=== PATIENT | female | born 1965 | race African-American/Black ===

== ENCOUNTER 2024-10-31 18:55 | Emergency (ER) | payer MEDICAID ==
[~2024-10-31] VITALS: Ht 152.4 cm; Wt 50.0 kg
[~2024-10-31 18:55] MED LIST: AMOX1TAB16 MT; DOCU-422 PO; LOSA50TA41 PO
[2024-10-31 19:01] VITALS: TEMP 36.9; O2SAT 99
[2024-10-31 22:37] VITALS: BP 150/91; PULSE 75; RESP 16; O2SAT 100
== END 2024-10-31 22:38 ==
LOC: ER 18:55
DX: S91.101A Unspecified open wound of right great toe without damage to nail, initial encounter (principal); I10 Essential (primary) hypertension; E11.9 Type 2 diabetes mellitus without complications; E03.9 Hypothyroidism, unspecified; Z79.899 Other long term (current) drug therapy; W45.8XXA Other foreign body or object entering through skin, initial encounter; Y93.89 Activity, other specified; Y92.89 Other specified places as the place of occurrence of the external cause; Y99.8 Other external cause status
CPT/HCPCS: 99283

== ENCOUNTER 2025-08-17 15:44 | Inpatient (IN) | payer MEDICARE, MEDICAID ==
[~2025-08-17] VITALS: Ht 160 cm; Wt 50.8 kg
[~2025-08-17 15:44] MED LIST changes: -AMOX1TAB16 MT; +ASPI-1406 PO; +CLOP-31 PO; +FOLI0.8T53 PO; +INSLIS SUBCUT; +LANTUSUD SUBCUT; +LEVO25TA7 PO; +LIP40 PO; -LOSA50TA41 PO
[2025-08-17 15:47] VITALS: O2SAT 100
[2025-08-17 17:08] LABS: BASOPHILS % 0.4 % (0.0-2.0); EOSINOPHILS % 0.9 % (0.0-5.0); HEMATOCRIT. 34.0 % (36.0-48.0); HEMOGLOBIN. 11.6 g/dL (12.0-16.0); LYMPHOCYTES % 21.6 % (20.0-50.0); MEAN PLATELET VOLUME 7.4 fl (7.4-10.4); MONOCYTES % 5.5 % (2.0-8.0); NEUTROPHILS % 71.6 % (40.0-76.0); PLATELET 292 x1000/uL (130-400); RED BLOOD CELL COUNT 3.61 mill/uL (4.2-5.4); RED CELL DISTRIBUTION WIDTH 17.7 % (11.6-14.6)
[2025-08-17 17:24] LABS: INR 1.1
[2025-08-17 17:30] LABS: PROTEIN TOTAL 7.9 g/dL (6.0-8.3); TROPONIN I HIGH SENSITIVITY 27 ng/L (3.0-34); UREA NITROGEN BLOOD 12 mg/dL (9-23)
[2025-08-17 17:31] LABS: ASPARTATE AMINOTRANSFERASE 34 IU/L (<34); BILIRUBIN DIRECT 0.1 mg/dL (<=3.0)
[2025-08-17 17:32] LABS: BILIRUBIN TOTAL 0.3 mg/dL (0.1-1.0); CREATININE 2.0 mg/dL (0.6-1.0)
[2025-08-17] MEDS: ACETAMINOPHEN 325MG TABLET PO ONE (19:05)
[2025-08-17 20:43] LABS: TROPONIN I HIGH SENSITIVITY 36 ng/L (3.0-34)
[2025-08-17] MEDS ORDERED: IPRATROPIUM/ALBUTEROL 0.5-3(2.5)MG/3ML NEB HHN PRN (22:15)
[2025-08-17] MEDS ORDERED: POTASSIUM CHLORIDE 20MEQ TABLET SR PO PRN (22:15)
[2025-08-17] MEDS ORDERED: ONDANSETRON HCL 4MG/2ML INJ IV PRN (22:15)
[2025-08-17] MEDS ORDERED: DEXTROSE 50% WATER 50ML SYRINGE IV PRN ×2 (22:15)
[2025-08-17] MEDS ORDERED: MAGNESIUM/ALUMINUM HYDROXIDE/SIMETHICONE 30ML UDC PO PRN (22:15)
[2025-08-17] MEDS ORDERED: HYDROCODONE/ACETAMINOPHEN 5/325MG TABLET PO PRN (22:20)
[2025-08-18] VITALS (8 sets, daily range): BP systolic 128–178; BP diastolic 75–105; PULSE 60–79; RESP 16–20; TEMP 36.2–37.4; O2SAT 98–100
[2025-08-18] MEDS: ACETAMINOPHEN 325MG TABLET PO PRN (00:33)
[2025-08-18] MEDS: CLONIDINE 0.1MG TABLET PO PRN (00:33)
[2025-08-18 06:37] LABS: UREA NITROGEN BLOOD 20 mg/dL (9-23)
[2025-08-18 06:39] LABS: PROTEIN TOTAL 6.7 g/dL (6.0-8.3)
[2025-08-18 06:40] LABS: ASPARTATE AMINOTRANSFERASE 30 IU/L (<34); BILIRUBIN DIRECT < 0.1 mg/dL (<=3.0); BILIRUBIN TOTAL 0.2 mg/dL (0.1-1.0); PHOSPHORUS 4.2 mg/dL (2.5-4.9)
[2025-08-18 06:44] LABS: CREATININE 3.1 mg/dL (0.6-1.0)
[2025-08-18 06:53] LABS: BASOPHILS % 0.4 % (0.0-2.0); EOSINOPHILS % 1.3 % (0.0-5.0); HEMATOCRIT. 31.0 % (36.0-48.0); HEMOGLOBIN. 10.5 g/dL (12.0-16.0); LYMPHOCYTES % 38.6 % (20.0-50.0); MEAN PLATELET VOLUME 7.6 fl (7.4-10.4); MONOCYTES % 8.6 % (2.0-8.0); NEUTROPHILS % 51.1 % (40.0-76.0); PLATELET 234 x1000/uL (130-400); RED BLOOD CELL COUNT 3.25 mill/uL (4.2-5.4); RED CELL DISTRIBUTION WIDTH 18.1 % (11.6-14.6)
[2025-08-18] MEDS: BLOOD SUGAR DIAGNOSTIC STRIP TEST SCH (07:40)
[2025-08-18] MEDS: INSULIN LISPRO 100 UNITS/ML SUBCUT SCH (08:10)
[2025-08-18] MEDS: ENOXAPARIN 30MG/0.3ML SYR SUBCUT SCH (09:09)
[2025-08-18 10:19] LABS: TROPONIN I HIGH SENSITIVITY 32 ng/L (3.0-34)
[2025-08-18] MEDS: DOCUSATE SODIUM 100MG CAPSULE PO PRN (18:50)
[2025-08-19] VITALS (12 sets, daily range): BP systolic 92–175; BP diastolic 64–106; PULSE 64–102; RESP 16–20; TEMP 36.2–37.2; O2SAT 95–99
[2025-08-19 12:14] LABS: BASOPHILS % 0.2 % (0.0-2.0); EOSINOPHILS % 1.0 % (0.0-5.0); HEMATOCRIT. 36.9 % (36.0-48.0); HEMOGLOBIN. 12.4 g/dL (12.0-16.0); LYMPHOCYTES % 25.6 % (20.0-50.0); MEAN PLATELET VOLUME 7.5 fl (7.4-10.4); MONOCYTES % 5.4 % (2.0-8.0); NEUTROPHILS % 67.8 % (40.0-76.0); PLATELET 284 x1000/uL (130-400); RED BLOOD CELL COUNT 3.87 mill/uL (4.2-5.4); RED CELL DISTRIBUTION WIDTH 18.9 % (11.6-14.6)
[2025-08-19 12:30] LABS: CREATININE 2.5 mg/dL (0.6-1.0); UREA NITROGEN BLOOD 18 mg/dL (9-23)
[2025-08-19 12:31] LABS: PROTEIN TOTAL 8.6 g/dL (6.0-8.3)
[2025-08-19 12:32] LABS: ASPARTATE AMINOTRANSFERASE 43 IU/L (<34); BILIRUBIN DIRECT 0.1 mg/dL (<=3.0); BILIRUBIN TOTAL 0.3 mg/dL (0.1-1.0); PHOSPHORUS 3.3 mg/dL (2.5-4.9)
[2025-08-19] MEDS: DOCUSATE SODIUM 100MG CAPSULE PO SCH (15:30)
[2025-08-19] MEDS: FOLIC ACID/VITAMIN B COMP W-C TABLET PO SCH (15:37)
[2025-08-19] MEDS: CLOPIDOGREL 75MG TABLET PO SCH (15:38)
[2025-08-19] MEDS: DOCUSATE SODIUM 250MG CAPSULE PO SCH (21:01)
[2025-08-19] MEDS: ATORVASTATIN CALCIUM 40MG TABLET PO SCH (21:01)
[2025-08-20] VITALS (10 sets, daily range): BP systolic 116–161; BP diastolic 70–89; PULSE 64–83; RESP 16–20; TEMP 36.3–36.4; O2SAT 96–99
[2025-08-20 07:10] LABS: BASOPHILS % 0.4 % (0.0-2.0); EOSINOPHILS % 1.5 % (0.0-5.0); HEMATOCRIT. 35.5 % (36.0-48.0); HEMOGLOBIN. 11.9 g/dL (12.0-16.0); LYMPHOCYTES % 34.8 % (20.0-50.0); MEAN PLATELET VOLUME 7.5 fl (7.4-10.4); MONOCYTES % 7.4 % (2.0-8.0); NEUTROPHILS % 55.9 % (40.0-76.0); PLATELET 270 x1000/uL (130-400); RED BLOOD CELL COUNT 3.69 mill/uL (4.2-5.4); RED CELL DISTRIBUTION WIDTH 18.4 % (11.6-14.6)
[2025-08-20 07:25] LABS: UREA NITROGEN BLOOD 37.0 mg/dL (9-23)
[2025-08-20 07:31] LABS: CREATININE 4.1 mg/dL (0.6-1.0)
[2025-08-20] MEDS: AMLODIPINE 5MG TABLET PO SCH (08:42)
[2025-08-20] MEDS: LEVOTHYROXINE SODIUM 25MCG TABLET PO SCH (08:42)
[2025-08-20] MEDS: ASPIRIN 81MG EC TABLET PO SCH (08:50)
[2025-08-20] MEDS: INSULIN GLARGINE 100 UNITS/ML SUBCUT SCH (11:24)
[2025-08-20] MEDS ORDERED: AMLODIPINE 5MG TABLET PO SCH (21:00)
== END 2025-08-20 19:20 | DRG 280 ==
LOC: ER 15:44 → 7WST 21:35 → EDBEDREQTM 21:37 → EDBEDREQ 21:37 → ENRESERV 23:00
PROVIDERS: ADMIT Family Medicine Adult Medicine; ATTEND Family Medicine Adult Medicine
PROC: 5A1D70Z Performance of Urinary Filtration, Intermittent, Less than 6 Hours Per Day (ICD-10-PCS; principal; 2025-08-19)
PROC: 5A1D70Z Performance of Urinary Filtration, Intermittent, Less than 6 Hours Per Day (ICD-10-PCS; 2025-08-20)
DX: I21.4 Non-ST elevation (NSTEMI) myocardial infarction (principal); N18.6 End stage renal disease; G93.40 Encephalopathy, unspecified; E87.20 Acidosis, unspecified; I12.0 Hypertensive chronic kidney disease with stage 5 chronic kidney disease or end stage renal disease; E83.39 Other disorders of phosphorus metabolism; E11.22 Type 2 diabetes mellitus with diabetic chronic kidney disease; D64.9 Anemia, unspecified; Z99.2 Dependence on renal dialysis; Z79.02 Long term (current) use of antithrombotics/antiplatelets; E03.9 Hypothyroidism, unspecified; E11.65 Type 2 diabetes mellitus with hyperglycemia; I25.10 Atherosclerotic heart disease of native coronary artery without angina pectoris; Z79.82 Long term (current) use of aspirin; Z86.73 Personal history of transient ischemic attack (TIA), and cerebral infarction without residual deficits
CPT/HCPCS: 36415; 71045; 80048; 80076; 82962; 83735; 84100; 84484; 85025; 90935; 93005; 93970; 96372; 99291; A4606; A6449; J1650; J1815